=== PATIENT | male | born 1980 | race Caucasian/White ===

== ENCOUNTER 2016-07-06 15:00 | Emergency (ER) | payer SELFPAY ==
[~2016-07-06] VITALS: Ht 172.7 cm; Wt 89.4 kg
[2016-07-06 15:25] VITALS: BP 139/103
--- NOTE | 2016-07-06 19:00 | NUR ---
Patient ambulated to bed 5. RN evaluating patient at bedside.
--- NOTE | 2016-07-06 19:04 | NUR ---
Dr. Harding evaluating patient at bedside.
--- NOTE | 2016-07-06 19:12 | NUR ---
36 Y/O HERE W/C/O BACK PAIN WITH NECK PAIN X2 DAYS - DENIES ANY TRAUMA. NO S/S OF DISTRESS NOTED, PT HAS BEEN EVALUATED BY DR FORD.
[2016-07-06] MEDS ORDERED: KETOROLAC 30 MG/ML VIAL IM ONE (19:15)
[2016-07-06] MEDS ORDERED: METHOCARBAMOL 500 MG TAB PO SCH (19:15)
[2016-07-06] MEDS ORDERED: HYDROcodone/APAP 5/325 MG 1 TAB TAB PO ONE (20:05)
[2016-07-06 20:25] VITALS: BP 138/91
--- NOTE | 2016-07-06 20:25 | NUR ---
Patient discharged with v/s stable. Written and verbal after care instructions given and explained. Patient alert, oriented and verbalized understanding of instructions. Ambulatory with steady gait. All questions addressed prior to discharge. ID band removed. Patient advised to follow up with PMD NEXT WK OR RETURN TO ER IF CONDITION WORSENS. Rx of MOTRIN, NORCO,AND ROBAXIN given. Patient educated on indication of medication including possible reaction and side effects. Opportunity to ask questions provided and answered.
== END 2016-07-06 20:25 | disposition home or self-care (01) ==
LOC: MED 15:00
DX: M54.5 Low back pain (principal); M54.2 Cervicalgia; Z71.6 Tobacco abuse counseling
CPT/HCPCS: 96372; 99283; J1885